=== PATIENT | male | born 1985 ===

== ENCOUNTER 2024-07-01 12:13 | Emergency (ER) | payer MEDICAID ==
[~2024-07-01] VITALS: Ht 175.3 cm; Wt 75.0 kg
[2024-07-01] MEDS: IBUPROFEN 600 MG TABLET PO ONE (15:58)
[2024-07-01] MEDS: ACETAMINOPHEN 500 MG TABLET PO ONE (15:58)
[2024-07-01 16:12] VITALS: BP 127/92; PULSE 56; RESP 18; TEMP 98.4; O2SAT 98
[2024-07-01] MEDS ORDERED: IBUP-1492 PO (16:21)
[2024-07-01] MEDS ORDERED: ACET-3385 PO (16:21)
== END 2024-07-01 16:31 | disposition home or self-care (01) ==
LOC: EMS 12:13
DX: S39.012A Strain of muscle, fascia and tendon of lower back, initial encounter (principal); X50.0XXA Overexertion from strenuous movement or load, initial encounter; Y93.89 Activity, other specified; Y92.89 Other specified places as the place of occurrence of the external cause; Y99.8 Other external cause status
CPT/HCPCS: 99283